=== PATIENT | male | born 1950 | race Caucasian/White ===

== ENCOUNTER → 2023-09-11 10:56 | Outpatient (REF) | payer OTHER, SELFPAY | LOC: HWRAD 10:56 | PROVIDERS: ATTENDING PHYSICIAN Family Medicine | DX: M51.26 Other intervertebral disc displacement, lumbar region (principal) | CPT/HCPCS: 72110 ==

== ENCOUNTER → 2023-09-27 11:37 | Outpatient (REF) | payer OTHER, SELFPAY | LOC: HWRAD 11:37 | PROVIDERS: ATTENDING PHYSICIAN Surgery; FAMILY PHYSICIAN Family Medicine | DX: K43.2 Incisional hernia without obstruction or gangrene (principal) | CPT/HCPCS: 74177; Q9967 ==

== ENCOUNTER → 2023-10-05 13:08 | Outpatient (REF) | payer OTHER, SELFPAY | LOC: PAVMRI 13:08 | PROVIDERS: ATTENDING PHYSICIAN Family Medicine | DX: M51.26 Other intervertebral disc displacement, lumbar region (principal) | CPT/HCPCS: 72158; A9575 ==

== ENCOUNTER → 2023-10-10 16:34 | Outpatient (REF) | payer OTHER, SELFPAY | LOC: HWRAD 16:34 | PROVIDERS: ATTENDING PHYSICIAN Family Medicine | DX: M25.532 Pain in left wrist (principal); S62.102A Fracture of unspecified carpal bone, left wrist, initial encounter for closed fracture | CPT/HCPCS: 73110 ==

== ENCOUNTER 2023-11-19 06:56 | Inpatient (IN) | payer OTHER, SELFPAY ==
[2023-11-07 13:36] VITALS: BMI 34.2
[2023-11-19] VITALS (31 sets, daily range): BP systolic 10–142; BP diastolic 63–92; BMI 31.5
[2023-11-19] MEDS: TYLENOL 1000 MG PO (08:45)
[2023-11-19] MEDS: LOVENOX 40 MG SC (08:45)
[2023-11-19] MEDS: NORMOSOL-R 1000 IV (09:16)
--- NOTE | 2023-11-19 13:59 | W.IMMPOSTOP ---
Surgical Immed Post Op Note
-
Primary Surgeon: Valerio
Assisting: DICKSON Church Toubat PGY1:
Pre-op Diagnosis: Ventral incisional hernia
Post-op Diagnosis: Incarcerated ventral incisional hernia
Procedure Performed: Repair of incarcerated ventral incisional hernia (16cm diameter) with separate releases of transversus abdominis fascia and muscle bilaterally (CPT 98361 x2)
Anesthesia Type: GETA + TAP block
Specimen / Cultures: None
Estimated Blood Loss: 25cc
Complications: None immediate
Operative Findings: 16cm x 9cm defect; minimal lysis of adhesions required, virtually no subcutaneous dissection required; tension free closure of posterior sheath after bilateral transversalis release; 2 small holes in the peritoneum at the
lateral pole of the arcuate line (one on each side) repaired with 3-0 vicryl suture; 30cm x 30cm bard soft mesh; 19fr spike drains into retrorectus space (one on each side).
--- NOTE | 2023-11-19 14:06 | OR.RPT ---
Operative Report
Operative Report
Primary Surgeon: Valerio
Assisting: DICKSON Church; Jeronimo PGY1
Pre-op Diagnosis: Ventral incisional hernia
Post-op Diagnosis: Incarcerated ventral incisional hernia
Procedure Performed: Repair of incarcerated ventral incisional hernia (16cmx 9cm) with left side release of transversus abdominis fascia and muscle & right side release of transversus abdominis fascia and muscle (CPT 38161 x2)
Anesthesia Type: GETA
Specimen / Cultures: None
Estimated Blood Loss: 25cc
Complications: None immediate
Operative Findings: 16cm x 9cm defect; minimal lysis of adhesions required, virtually no subcutaneous dissection required; tension free closure of posterior sheath after bilateral transversus release; 30cm x 30cm bard soft mesh; 19fr spike drains
into retrorectus space (one on each side).
Date of Surgery: 11/19/23
Indications: This 73M developed a symptomatic and rapidly enlarging ventral incisional hernia. Open repair with component separation was elected.
Description of procedure: The patient was placed on the operating table in the supine position. General anesthesia was induced. A time-out was completed verifying correct patient, procedure, site, positioning, and special equipment prior to
beginning this procedure.The abdomen was prepped and draped in the usual sterile fashion. An incision was made in the midline at the site of his scar and the incision was carried down to the hernia sac. The sac was divided taking care to preserve as
much sac tissue as possible. The incision was carried cephalad and caudad using electrocautery and dividing the hernia sacs and linea alba. The abdomen was entered and 3 areas of thin filmy adhesions from small bowel to abdominal wall were lysed
sharply. A blue towel was placed into the abdomen to protect the viscera. The midline fascia was gasped and elevated and the left rectus sheath was incised at the medial aspect with electrocautery. This incision was carried cephalad and caudad until
the entire length of the sheath was opened. At the arcuate line a small hole in the peritoneum was noted and repaired with 3-0 vicryl suture. The retrorectus space was bluntly developed laterally out to the perforators which were protected.
Attention was turned to the right side and the process was repeated with a similar hole in the peritoneum at the same location, repaired in similar fashion. Once the space was maximally developed, the cut edges were gently brought together at the
midline and a significant gap remained. Beginning on the right, an incision was made in the posterior sheath about 1cm medial to the perforators and the transversus muscle belly was exposed. A right angle was used to elevate the muscle fibers and
the bovie was used to release them. The transversus fibers were then gently bluntly swept laterally off the peritoneum. This maneuver progressed in both cephalad and caudad directions until the release was completed. Attention was turned to the left
side and the above process was repeated. The blue towel was removed. The cut edges of the posterior sheath now reapproximated without tension. This layer was closed with 2-0 PDS stratafix suture. The entire exposed surface was inspected and
hemostasis was assured. A 30cm x 30cm bard soft mesh was placed into the retrorectus space in adri configuration. The corners were trimmed to prevent folding. Once the mesh was laid flat without folding or curling, it was fixed to the abdominal
wall with 3-0 vicryl sutures at each corner. A 19fr spike drain was placed on each side on top of the mesh, brought out through an inferior skin incision and secured with 2-0 nylon suture. The anterior fascia was then closed with #1 PDS stratafix
suture without tension. Local anesthetic was infiltrated into the abdominal wall along both sides. Redundant sac wall was excised with electrocautery. The skin was closed with geovanny. An aquacel dressing was placed.
The patient tolerated the procedure well and was taken to the postanesthesia care unit in stable condition.
[2023-11-19 14:07] LABS: Glucose - Point of Care 151 mg/dl (70-99)
[2023-11-19 14:48] LABS: Hematocrit 35.3 % (39.0-52.0); Hemoglobin 12.5 g/dL (13.0-18.0); Mean Corp Hgb Conc. 35.4 g/dL (33.0-37.0); Mean Corpuscular Hgb 35.4 pg (27.0-31.0); Mean Platelet Volume 9.2 fL (7.4-10.4); Platelet Count 200 10^3/uL (130-400); Red Blood Cell Count 3.53 10^6/uL (4.70-6.10); Red Cell Dist. Width 13.5 % (11.5-14.5); White Blood Cell Count 13.4 10^3/uL (4.8-10.8)
[2023-11-19] MEDS: DILAUDID PCA 30 IV (14:51)
[2023-11-19] MEDS: D5/0.45%NSS with KCL 20 MEQ 1000 IV (14:51)
[2023-11-19 15:02] LABS: Blood Urea Nitrogen 22 mg/dl (9-20); Calcium 7.6 mg/dl (8.4-10.2); Carbon Dioxide 19 mmol/L (22-30); Chloride 106 mmol/L (98-107); Estimated Creatinine Clearance 47 ml/min; Glucose 167 mg/dl (70-99); Sodium 134 mmol/L (135-145); eGFR 52.41
--- NOTE | 2023-11-19 16:23 | W.CON.NEPH ---
Consultation
-
Date/Time Consultation Requested: 11/19/2023 4:00 PM
Date/Time Consultation Performed: 11/19/2023 4:00 pm
Requesting Provider: Valerio
Performing Provider: Arturo
Reason for Consultation: CKD
Medical History
-
Chief Complaint: Chronic kidney disease /decreased urine output
History of Present Illness:
The patient is a 73-year-old male with a past medical history of chronic kidney disease stage II last noted to be stable at 1.1 in July 2023. He has a history of hypertension maintained on lisinopril therapy. He is maintained on allopurinol in
the setting of his gout and tamsulosin for his BPH. He presented to the hospital for elective ventral hernia repair for incarcerated ventral hernia. During the procedure his blood pressure abruptly dropped with systolics noted to be as low as 62
and was started on pressors intraoperatively for blood pressure support. After arriving to the PACU he has had little urine output which was noted during the surgical case despite exchange of Quick catheter. We were consulted in regards to his
decreased urine output in the setting of his chronic kidney disease.
Past Medical History
Hypertension
Gout
BPH
Prior history of sigmoid diverticulitis
History of solitary left kidney following right nephrectomy in 2007 for renal mass
CKD stage II baseline creatinine 1.1
Social History
No tobacco or alcohol abuse
Family History
No CKD
Family History: Not Pertinent
Allergies / Home Medications
Allergy/AdvReac Type Severity Reaction Status Date / Time
NSAIDS (Non-Steroidal Allergy SEE BELOW Verified 11/19/23 08:41
Anti-Inflamma
ragweed pollen Allergy SNEEZING,RUNNY Verified 11/19/23 08:41
NOSE
/WATERY
EYES
�Medication �Instructions �Recorded �Confirmed �Type
glucosamine sulfate dipotassium Cl 1 cap PO BID Supplement 07/23/12 11/19/23 History
500 mg-chondroitin 400 mg capsule
(Glucosamine Sulfate 2
KCL-Chondroitin)
omega-3 fatty acids-fish oil 300 1,000 mg PO BID Supplement 07/23/12 11/19/23 History
mg-1,000 mg capsule
allopurinol 300 mg tablet 300 mg PO DAILY Gout 11/17/21 11/19/23 History
cyanocobalamin (vitamin B-12) 5,000 mcg PO DAILY Supplement 11/17/21 11/19/23 History
1,000 mcg tablet
lisinopril 20 mg tablet 20 mg PO DAILY Blood pressure 11/17/21 11/19/23 History
loratadine 10 mg tablet 10 mg PO DAILY Allergies 11/17/21 11/19/23 History
tamsulosin 0.4 mg capsule 0.4 mg PO DAILY Urinary issue 06/13/22 11/19/23 History
acetaminophen 650 mg 1,300 mg PO Q12H Pain 04/24/23 11/19/23 History
tablet,extended release
ijvtohvqdrfk-pfmxruln-jyqjxu tablet 1 tab PO DAILY Supplement 04/24/23 11/19/23 History
tadalafil 5 mg tablet 5 mg PO DAILY 11/13/23 11/19/23 History
Review of Systems
-
History Source: Patient
All other systems: Negative unless noted
Constitutional: No Symptoms
EENT: No Symptoms
Respiratory: No Symptoms
Cardiac: No Symptoms
Abdomen/GI: Other (Some mild postoperative abdominal pain)
: Bleeding and Other (Quick with blood-tinged urine)
Musculoskeletal: No Symptoms
Skin: No Symptoms
Neurological: No Symptoms
Hematologic/Lymphatic: No Symptoms
Physical Exam
Vital Signs
Vital Signs
Temp Pulse Resp BP Pulse Ox
97 F 80 20 114/75 94
11/19/23 15:00 11/19/23 16:15 11/19/23 16:15 11/19/23 16:00 11/19/23 16:15
Lab Results
WBC 13.4 10^3/uL (4.8-10.8) H 11/19/23 14:41
RBC 3.53 10^6/uL (4.70-6.10) L 11/19/23 14:41
Hgb 12.5 g/dL (13.0-18.0) L 11/19/23 14:41
Hct 35.3 % (39.0-52.0) L 11/19/23 14:41
Plt Count 200 10^3/uL (130-400) 11/19/23 14:41
Sodium 134 mmol/L (135-145) L 11/19/23 14:41
Potassium 4.0 mmol/L (3.5-5.1) 11/19/23 14:41
Chloride 106 mmol/L (98-107) 11/19/23 14:41
Carbon Dioxide 19 mmol/L (22-30) L 11/19/23 14:41
BUN 22 mg/dl (9-20) H 11/19/23 14:41
Creatinine 1.4 mg/dL (0.7-1.3) H 11/19/23 14:41
eGFR 52.41 11/19/23 14:41
Glucose 167 mg/dl (70-99) H 11/19/23 14:41
Calcium 7.6 mg/dl (8.4-10.2) L 11/19/23 14:41
Physical Exam
General: Awake, Alert, No Distress and Nontoxic
HEENT: PERRL, EOMI, Anicteric, Conjunctivae Clear, Ear/Nose Intact, Hearing Normal, Oropharynx Clear/Moist, Dentition Intact, Facial Symmetry, Neck Supple, Trachea Midline, No JVD and No Thyromegaly
Respiratory: Clear
Cardiac: S1/S2 and Regular Rate/Rhythm
Breast: Deferred by me
Abdomen: Nondistended (Distended, SHERRY drain), No Hepatosplenomegaly and Other (Decreased bowel sounds)
Rectal: Deferred by Provider
Genito-urinary: No Costovertebral Tender and Other (Quick catheter noted with blood in urine)
Musculoskeletal: No Clubbing, No Cyanosis and No Edema
Skin: No Rash, Warm, Dry, No Clubbing, No Cyanosis, Normal Turgor and No Bruising
Neuro: Nonfocal/Grossly Intact
Hematologic/Lymphatic: No Cervical Lymphadenopathy, No Submandibular Lymphadenopathy and No Supraclavicular Lymphadenopathy
Psych: Mood/afflect pleasant and Other (Some postoperative lethargy noted)
Assessment/Plan
-
Impression:
Status post ventral hernia repair
Chronic kidney disease stage II with decreased urine output postoperatively
BPH
Hypertension
History of gout
History of diverticulitis
Metabolic acidosis
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
Plan:
-I suspect his poor urine output is a function of decreased mean arterial perfusion pressure as per review of the anesthesia log
-Systolic blood pressures were noted to have dropped to 62 with multiple pressors initiated
-Colloid and albumin support was aggressively given intraoperatively
-Postoperatively more hemodynamically stable and will continue on normal saline 100 cc per/hr
-Maintain Quick catheter and do not remove given history of BPH and acute kidney injury with current anuria (catheter currently irrigating well with flushes)
-Withhold lisinopril
-If no urine output by tomorrow morning we will obtain non contrast CAT scan of abdomen and pelvis to evaluate for obstructive process
Data Reviewed
-
Radiology: Report Reviewed by me (EKG report reviewed personally sinus rhythm at 65 beats per)
Labs: Labs Reviewed by me (Basic metabolic panel and CBC reviewed)
Old Records: Reviewed (Reviewed old medical records from date April 2023 creatinine 1.1 in electronic medical record)
--- NOTE | 2023-11-19 16:32 | CON.HOSP ---
Addendum entered and electronically signed by Moustapha Ramsey MD 11/19/23 18:36:
I saw and examined the patient.
The TELESALES CONSULTANT or PA's note was reviewed and I agree with the note.
Comment: History as noted and have to suspest has some ATN from hypotension intraoperative in spite pressers and 4 litres of crystalloids and albumin being given BP has since recovered when seen in PACU but remains drowsy but arousable and
appropriate but w/ meager if any urine output thru tai .No signs of obstruction from clots etc Given this presentation would prefer to observe and manage at least overnight in IMU , continue IV fluids , hold TRIPP inhibitor and tamsulosin can cont
as long as BP remains stable.Can be given further pressors in IMU if warranted /if remains oliguric will need imaging to assess for obstructive process.
Appreciate Nephrology and Urologic input, monitor BMP and cont to Bladder scan / Monitor SHERRY drains post op surgical mgt
Original Note:
Family Physician
-
Family Physician: Gerardo Cisneros
Chief Complaint
-
medical management
History of Present Illness
73-year-old with past medical history for prostate cancer, gout, acute diverticulitis, arthritis, hypertension, solitary kidney, BPH consulted for medical management status post open ventral hernia repair. Patient received 4 L of crystalloid and
250 cc albumin in the OR. Patient noted oliguric. Tai catheter placed in the OR with very minimal output. Bladder irrigated in the ER as well as PACU with no much urine output. Patient is very drowsy. Opens eyes when called name. Patient
feels like, he wants to void. Patient denied headache dizziness or syncopal episode. Patient denied chest pain or short of breath. Noted abdominal distended. Dressing intact. Noted bilateral SHERRY drainage.
Medical History
Past Medical History
Past Medical History: Reports Other
Additional Past Medical History:
Renal oncocytoma of right kidney
Solitary left kidney
Gout
Hypertension
Prostate cancer
Nephrolithiasis
Chronic kidney disease stage II
Prostate cancer
Sciatica
History of kidney cancer
Constipation
Colonic fistula
Diverticulitis of colon
Colovesical fistula
Past Surgical History: Reports Other
Additional Past Surgical History:
Lithotripsy
Cardioversion
Radical right nephrectomy
Bilateral cataract surgery
Bilateral knee replacement
Left rotator cuff repair
L4-L5 laminectomy
Bilateral duct stenting
Bilateral total hip replacement
Sigmoidectomy
Social History
Unable to obtain full social history at this time due to: Acuity
Family History
Family History: Reviewed & Not Pertinent
Allergies / Home Medications
Allergies reflects when Allergies were last updated in [employer]
Home Medications with original date entered in [employer]
Allergy/Medication List:
Allergies
Allergy/AdvReac Type Severity Reaction Status Date / Time
NSAIDS (Non-Steroidal Allergy SEE BELOW Verified 11/19/23 08:41
Anti-Inflamma
ragweed pollen Allergy SNEEZING,RUNNY Verified 11/19/23 08:41
NOSE
/WATERY
EYES
Home Medications
glucosamine sulfate dipotassium Cl 500 mg-chondroitin 400 mg capsule (Glucosamine Sulfate 2 KCL-Chondroitin) 1 cap PO BID Supplement 07/23/12
omega-3 fatty acids-fish oil 300 mg-1,000 mg capsule 1,000 mg PO BID Supplement 07/23/12
allopurinol 300 mg tablet 300 mg PO DAILY Gout 11/17/21
cyanocobalamin (vitamin B-12) 1,000 mcg tablet 5,000 mcg PO DAILY Supplement 11/17/21
lisinopril 20 mg tablet 20 mg PO DAILY Blood pressure 11/17/21
loratadine 10 mg tablet 10 mg PO DAILY Allergies 11/17/21
tamsulosin 0.4 mg capsule 0.4 mg PO DAILY Urinary issue 06/13/22
acetaminophen 650 mg tablet,extended release 1,300 mg PO Q12H Pain 04/24/23
mqgcgdjaysnw-bfhhypnw-trwwwc tablet 1 tab PO DAILY Supplement 04/24/23
tadalafil 5 mg tablet 5 mg PO DAILY 11/13/23
Review of Systems
-
Constitutional: Reports No Symptoms
EENT: Reports No Symptoms
Respiratory: Reports No Symptoms
Cardiac: Reports No Symptoms
Abdomen/GI: Reports No Symptoms
: Reports No Symptoms
Musculoskeletal: Reports No Symptoms
Skin: Reports No Symptoms
Neurological: Reports No Symptoms
Endocrine: Reports No Symptoms
Hematologic/Lymphatic: Reports No Symptoms
Psych: Reports No Symptoms
Physical Exam
Vital Signs
Vital Signs
Temp Pulse Resp BP Pulse Ox
97 F 80 20 114/75 94
11/19/23 15:00 11/19/23 16:15 11/19/23 16:15 11/19/23 16:00 11/19/23 16:15
Physical Exam
General: Well Developed, Well Nourished and No Apparent Distress
HEENT: Normocephalic, Moist Mucous Membranes and Atraumatic
Respiratory: Clear
Cardiac: S1/S2 and Regular Rhythm; Negative Murmur or Rub
GI: Soft, Non Tender, Non Distended, Normal Bowel Sounds and Other (b/l SHERRY drainage. dressing c/d/i)
Rectal: Deferred by Provider
Musculoskeletal: No Clubbing, No Cyanosis and No Edema
Skin: Negative Rash
Neuro: AO x 3 and Nonfocal/Grossly Intact
Psych: Calm
Laboratory Results
-
Laboratory Results
11/19/23 14:41
11/19/23 14:41
Data Reviewed
-
Lab Data: Labs Reviewed
Impression / Plan
-
# Status post ventral incisional hernia repair
-Bilateral SHERRY drainage
-Abdominal dressing intact
-Clear liquid diet
-Management surgery
# Oliguric unclear
-Tai cath in place with little output
-Urology consulted
# Acute kidney injury
-Creatinine 1.4
-Fluids continued
-Nephrology consulted
# Essential hypertension
-Hold lisinopril
# Prostatic hypertrophy
-Flomax continued
#. Gout. Hold allopurinol.
#Deep venous thrombosis prophylaxis with SCDs.
# CODE STATUS
-Full code
[2023-11-19] MEDS: OFIRMEV 100 IV ×2 (16:35→22:26)
[2023-11-19] MEDS: NSS 1000 IV (16:51)
--- NOTE | 2023-11-19 18:02 | SUR.PHASEI ---
pacu addendum - patient post op pacu extensive hernia repair, report scant urine output and tai change in OR. still scant - looks clear water with slight blood tinge. Abdomen very large, patient somulent - SHERRY drainage as noted. Dr Luo
updated throughout pacu stay. labs drawn results to Dr Cassidy and Dr Luo. Fluid bolus given with no increase in output. vss. monitor with occasional pac's and pvc's. Patient sleeps unless disturbed, - c/o discomfort of need to void. Does
not c/o with abd pressure over bladder area. - attempt bladder scan at 1500 - 20cc. Difficult technique with incision line and dressing. soft tissue bulge right side of abd, minimal drainage on dressing - marked. vss. weaned O2 to nasal
cannula. 1430 - IV bolus completed - per Dr Luo - D5.45ns with 20KCl up and Dilaudid HORSE RACING ANALYST up. Instructed patient who sleeps through instruction. Denies pain
SHERRY drains intact and continue to drain Left more than right. Dr Retana visits. Keasbey MACHINE ROOM ENGINEER visit. 1700 - change to NS IV. updated x2 and visited in pacu at 1700. Dr Luo confering with Dr Reyes and Dr Retana - Tai balloon deflated and
blood spurts from penis. Patient 'voiding' in spurts - 200 cc of bloody drainage out - at 1740 - total of 500cc out with huge formed clot. bladder scan again - for another 500cc. patient sleeps
--- NOTE | 2023-11-19 18:56 | W.PN.URO.CBU ---
Today's Communication / Plan
-
Keep Quick at least 48 hours
Voiding trial before discharge home or as outpatient
Assessment / Plan
-
Quick catheter trauma
Gross hematuria
Urine retention
---
Sterile field established at the bedside
20 Fr Coude catheter passed with some resistance in the mid/proximal urethra after the intra-urehtral administration of 10 cc lubricant jelly (which also met some resistance)
500+ ml of clear urine recovered immediately
Quick balloon inflated with 10 ml sterile water
Diagnosis
-
Date of Service: November 19, 2023
-
Patient Diagnosis:
Gross hematuria
Urine retention
Quick catheter trauma: during open incisional hernia repair
---
History of prostate cancer s/p radical perineal prostatectomy 04/28
Subjective
-
Relief of lower abdominal discomfort following successful placement of Quick catheter
Objective
-
Vital Signs
Temp Pulse Resp BP Pulse Ox
98.2 F 85 23 137/86 96
11/19/23 15:45 11/19/23 18:30 11/19/23 18:30 11/19/23 18:30 11/19/23 18:30
Intake and Output
11/18/23 11/19/23 11/20/23
06:59 06:59 06:59
Intake Total 870 / 870
Output Total 1435 / 1435
Balance -565 / -565
Intake:
Oral fluids 20 / 20
IV fluids (Total) 850 / 850
D5.45ns with 20 KCL 150 / 150
normosol 400 / 400
nss 300 / 300
Output:
Drain Output (Total) 235 / 235
Left Middle Abdomen 165 / 165
Right Middle Abdomen 70 / 70
Urine, Quick 25 / 25
Urine, Voided 1175 / 1175
Laboratory Results
11/19/23 14:41
11/19/23 14:41
Review of Systems
-
: Difficulty Voiding and Bleeding
Physical Exam
-
General - well developed, well nourished, no acute distress
Abdomen - soft, non-tender, abdominal dressing in place, SP discomfort
Genitalia - clotted blood at urethral meatus
Counseling
-
Discussed with Dr. Luo
--- NOTE | 2023-11-19 20:10 | SUR.PHASEI ---
Dr Reyes in pacu at 1830 - examines and spoke with patient. Coude #20 cath inserted without difficulty. clear ernst urine - no bleeding.
stat lock placed, vss, Dr Morris updated by TT. Dr Reyes to call Dr Luo. Skin care given UTILITY ENGINEER reviewed again with patient who is having some discomfort. patient understands and able to use. skin care given. lungs clear. tai now draining
clear ernst urine. 1929 - discharge to IMU - handoff at bedside. updated by phone
--- NOTE | 2023-11-19 20:50 | PTCARENOTE ---
Received pt from FINANCIAL SECRETARY. Pt pulled over to our bed. Pt is AAOx3, drowsy. NSR on the monitor. On 2L NC O2 sat 95%, lungs clear. Quick in place, hygiene provided. Abd incision with post op dressing intact. B/l SHERRY drains in place. Pt c/o 01/13 abd
pain, pt came up on a TABLE TENDER SLUDGE pump, education provided. IVF infusing @ 100 ml/hr. CHG bath provided. Pt is laying comfortable in bed with call hurtado in reach.
[2023-11-20] VITALS (25 sets, daily range): BP systolic 93–136; BP diastolic 51–82; PULSE 83; O2SAT 93; BMI 33.6
[2023-11-20] MEDS: NSS 1000 IV ×3 (01:28→20:31)
[2023-11-20] MEDS: OFIRMEV 100 IV ×2 (03:52→10:55)
[2023-11-20 04:29] LABS: Hematocrit 33.7 % (39.0-52.0); Hemoglobin 11.6 g/dL (13.0-18.0); Mean Corp Hgb Conc. 34.4 g/dL (33.0-37.0); Mean Corpuscular Hgb 35.2 pg (27.0-31.0); Mean Corpuscular Volume 102.1 fL (80.0-94.0); Mean Platelet Volume 9.7 fL (7.4-10.4); Platelet Count 209 10^3/uL (130-400); Red Cell Dist. Width 13.3 % (11.5-14.5); White Blood Cell Count 13.1 10^3/uL (4.8-10.8)
[2023-11-20 04:55] LABS: Blood Urea Nitrogen 24 mg/dl (9-20); Carbon Dioxide 21 mmol/L (22-30); Chloride 104 mmol/L (98-107); Estimated Creatinine Clearance 57 ml/min; Glucose 150 mg/dl (70-99); Potassium 4.5 mmol/L (3.5-5.1); Sodium 136 mmol/L (135-145); eGFR > 60.00
--- NOTE | 2023-11-20 07:13 | W.PN.HOSP.TC ---
Today's Communication/Plan
-
Continue IV fluids for now
Hematuria and oliguria now resolved continue Quick catheter as per urology for another 24 hours and void trial
Would continue to hold on TRIPP inhibitor as BPs remain soft
Increase activity diet advancement as per general surgery
Continue to monitor BMP
Assessment / Plan
Assessment / Plan
3-year-old with past medical history for prostate cancer, gout, acute diverticulitis, arthritis, hypertension, solitary kidney, BPH consulted for medical management status post open ventral hernia repair. Patient received 4 L of crystalloid and 250
cc albumin in the OR. Patient noted oliguric. Quick catheter placed in the OR with very minimal output. Bladder irrigated in the ER as well as PACU with no much urine output. Patient is very drowsy. Opens eyes when called name. Patient feels
like, he wants to void. Patient denied headache dizziness or syncopal episode. Patient denied chest pain or short of breath. Noted abdominal distended. Dressing intact. Noted bilateral SHERRY drainage.
# Status post ventral incisional hernia repair
-Bilateral SHERRY drainage
-Abdominal dressing intact
-Clear liquid diet
-Management surgery
# Oliguric /developed intraoperatively and postoperatively/ resolving
-Quick cath in place with little output in PACU/found to be in urethra and urology inserted a coud� catheter with good return
-Initial course of hematuria seems to be now resolving/retained catheter for another 24 hours and void trial recommended
-Appreciate urology input
-
# Acute kidney injury/obstructive versus ATN from hypotension
-Creatinine 1.4>> 1.2
-Fluids continued
-Nephrology consulted
# Essential hypertension
-Hold lisinopril would continue to hold TRIPP inhibitor today
# Prostatic hypertrophy
-Flomax continued
-Void trial in next 24 hours
#. Gout. Hold allopurinol.
#Deep venous thrombosis prophylaxis with SCDs.
# CODE STATUS
-Full code
Anticipated Discharge: Within 24 hours
Subjective/Interval History
-
Date of Service: November 20, 2023
States he feels significantly better much more awake alert from that seen in PACU had a restful night had coud� catheter inserted by urology with initial hematuria now seems to be resolving with good urine output overnight. Is hungry and wants to
start on liquid diet as per surgery.
Objective Data
-
Labs:
Laboratory Results
11/20/23
04:16
WBC 13.1 H
Hgb 11.6 L
Hct 33.7 L
Plt Count 209
Sodium 136
Potassium 4.5
Chloride 104
Carbon Dioxide 21 L
BUN 24 H
Creatinine 1.2
Glucose 150 H
Calcium 8.0 L
Vital Signs:
Vital Signs
Temp Pulse Resp BP Pulse Ox
97.8 F 72 16 101/57 93
11/20/23 03:12 11/20/23 06:00 11/20/23 06:30 11/20/23 06:00 11/20/23 06:33
I&O
11/19/23 11/20/23 11/21/23
06:59 06:59 06:59
Intake Total 2493 / 2493
Output Total 2215 / 2215
Balance 278 / 278
Review of Systems
-
History Source: Patient
EENT: Reports No Symptoms Reported
Respiratory: Reports No Symptoms
Cardiac: Reports No Symptoms
Abdomen/GI: Reports Abdominal Pain (Or incisions)
Physical Exam
-
General: Well Developed
HEENT: Normocephalic
Respiratory: Clear to Auscultation
Cardiac: Regular Rhythm
GI: Soft, Tender and Other (SHERRY drains bilaterally)
Genito-urinary: Quick
Neuro: Awake, Alert, Oriented and AO x 3
Psych: Calm
Data Reviewed
-
Total Time Spent with Patient (in minutes): 56
Labs: Labs Reviewed by me (Creatinine trending down to 1.2 from 1.4 yesterday/white count 13.1/hemoglobin 11.6)
[2023-11-20] MEDS: CLARITIN 10 MG PO (07:52)
[2023-11-20] MEDS: FLOMAX 0.400000000000000022 MG PO (07:52)
[2023-11-20] MEDS: MIRALAX 17 GRAMS PO (07:52)
[2023-11-20] MEDS: ZYLOPRIM 300 MG PO (07:52)
[2023-11-20] MEDS: LOVENOX SC (07:53)
--- NOTE | 2023-11-20 09:33 | PTCARENOTE ---
Patient received from night monitor. Patient resting comfortably in bed. AAO, VSS. No events noted overnight. No complaints of pain as patient on a Dilaudid NIGHT MONITOR. IVF @ 100mL/hr. Surgical site intact. B/L SHERRY drains with serosanguineous output.
Quick in place, yellow urine. Call hurtado in reach.
--- NOTE | 2023-11-20 09:59 | PTOTSP ---
Please order occupational therapy for ADL dysfunction. Thanks
--- NOTE | 2023-11-20 10:50 | W.PN.GS2 ---
Addendum entered and electronically signed by Eligio Luo MD 11/20/23 15:50:
I saw and examined the patient.
The Clinical Statistics Manager's note was reviewed and I agree with the note.
Comment: Pain well controlled. No flatus yet, no nausea. Drains serosang, aquacel OK with strikethrough at the inferior aspect, tai with clear yellow urine. OK for fulls today. PT/PT seeing. lovenox ppx and SCDs for DVT ppx. Cont tai for now.
Original Note:
Today's Communication / Plan
-
Clear liquids
Follow labs/outputs
Assessment / Plan
-
73 yo male who is POD #1 repair of incarcerated ventral hernia
AFVSS
Labs stable, CR improved today
Chronic kidney disease stage II with decreased urine output postoperatively: ATN suspected with urinary retention component. Improving with tai placement and IVF boluses
Medicine, urology and nephrology following with us
Await bowel recovery
--Clear liquids until passing flatus, then will ADAT to LRD
--Continue SHERRY's
--OOB/Ambulate as able
--Multimodal analgesics
--Continue tai for at least 48 hours as per urology recs
Subjective Data
-
Date of Service: November 20, 2023
Patient seen and examined at bedside. Denies n/v. Tolerating clears. No passage of flatus as of yet. No BM. Tired overall but OOB this am. Minimal post op discomfort.
Objective Data
-
Intake and Output
11/19/23 11/20/23 11/21/23
06:59 06:59 06:59
Intake Total 2493 / 2493
Output Total 2215 / 2215
Balance 278 / 278
Intake:
Oral fluids 140 / 140
IV fluids (Total) 215 / 215
D5.45ns with 20 KCL 150 / 150
UNLOAD ASSOCIATE Dilaudid 3 / 3
normosol 400 / 400
nss 400 / 400
ofirmev 100 / 100
IV piggybacks 200 / 200
Output:
Drain Output (Total) 315 / 315
Left Middle Abdomen 210 / 210
Right Middle Abdomen 105 / 105
Urine, Tai 725 / 725
Urine, Voided 1175 / 1175
Vital Signs
Temp Pulse Resp BP Pulse Ox
98.6 F 72 17 101/57 92
11/20/23 07:18 11/20/23 06:00 11/20/23 07:33 11/20/23 06:00 11/20/23 07:33
Lab Results
11/20/23 04:16
11/20/23 04:16
Calcium 8.0 mg/dl (8.4-10.2) L 11/20/23 04:16
Physical Exam
-
NAD
ABD soft, minimal distention, NT.
Aquacel dressings intact with shadowing. BL SHERRY's with mostly sanguinous fluid
--- NOTE | 2023-11-20 11:17 | W.PN.NEPH.PH ---
Today's Communication / Plan
-
sign off
Assessment/Plan
-
Impression:
Status post ventral hernia repair
Chronic kidney disease stage II with decreased urine output postoperatively
BPH
Hypertension
History of gout
History of diverticulitis
Metabolic acidosis
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
Plan:
-Kidney function stable and grossly nonoliguric following Quick catheter insertion
-Remains hemodynamically labile would continue to withhold TRIPP inhibitor at this time , can be restarted at discharge once bp rebounds
-Colloid and albumin support was aggressively given intraoperatively
-Postoperatively more hemodynamically stable and will continue on normal saline 100 cc per/hr
-Quick management per urology
-We will sign off
-
-
Date of Service: November 20, 2023
CC / HPI / ROS
-
Chief Complaint:
CKD
History of Present Illness:
Creatinine stable at 1.2
Hemodynamically labile off TRIPP inhibitor
Status post incarcerated ventral hernia repair
Review of Systems:
Quick
No fevers
Labs
-
Labs:
WBC 13.1 10^3/uL (4.8-10.8) H 11/20/23 04:16
RBC 3.30 10^6/uL (4.70-6.10) L 11/20/23 04:16
Hgb 11.6 g/dL (13.0-18.0) L 11/20/23 04:16
Hct 33.7 % (39.0-52.0) L 11/20/23 04:16
Plt Count 209 10^3/uL (130-400) 11/20/23 04:16
Sodium 136 mmol/L (135-145) 11/20/23 04:16
Potassium 4.5 mmol/L (3.5-5.1) 11/20/23 04:16
Chloride 104 mmol/L (98-107) 11/20/23 04:16
Carbon Dioxide 21 mmol/L (22-30) L 11/20/23 04:16
BUN 24 mg/dl (9-20) H 11/20/23 04:16
Creatinine 1.2 mg/dL (0.7-1.3) 11/20/23 04:16
eGFR > 60.00 11/20/23 04:16
Glucose 150 mg/dl (70-99) H 11/20/23 04:16
Calcium 8.0 mg/dl (8.4-10.2) L 11/20/23 04:16
Physical Exam
-
Vital Signs:
Vital Signs
Temp Pulse Resp BP Pulse Ox
98.6 F 72 17 101/57 92
11/20/23 07:18 11/20/23 06:00 11/20/23 07:33 11/20/23 06:00 11/20/23 07:33
Cardiovascular:: Regular rate and rhythm
Respiratory:: Bilateral: CTA
Lung Excursion:: Normal
Abdomen:: Distended
Bowel Sounds:: Decreased
Extremity Edema:: None: Bilateral:
Quick Catheter: Yes
--- NOTE | 2023-11-20 12:09 | W.PN.URO.CBU ---
Today's Communication / Plan
-
Keep Quick
Consider voiding trial prior to discharge if here another 48 hours
Assessment / Plan
-
Quick catheter trauma
Gross hematuria
Urine retention
---
Procedure 11/19/23:
Sterile field established at the bedside
20 Fr Coude catheter passed with some resistance in the mid/proximal urethra after the intra-urehtral administration of 10 cc lubricant jelly (which also met some resistance)
500+ ml of clear urine recovered immediately
Quick balloon inflated with 10 ml sterile water
Diagnosis
-
Date of Service: November 20, 2023
-
Patient Diagnosis:
Post Op Day:
Patient Diagnosis:
Gross hematuria
Urine retention
Quick catheter trauma: during open incisional hernia repair
---
History of prostate cancer s/p radical perineal prostatectomy 04/28
Subjective
-
No catheter bother
c/o incisional tenderness
Objective
-
Vital Signs
Temp Pulse Resp BP Pulse Ox
98.0 F 72 17 101/57 92
11/20/23 11:19 11/20/23 06:00 11/20/23 07:33 11/20/23 06:00 11/20/23 07:33
Intake and Output
11/19/23 11/20/23 11/21/23
06:59 06:59 06:59
Intake Total 2493 / 2493 240 / 240
Output Total 2215 / 2215
Balance 278 / 278 240 / 240
Intake:
Oral fluids 140 / 140 240 / 240
IV fluids (Total) 2152 / 215
D5.45ns with 20 KCL 150 / 150
DIRECTOR COMMERCIAL SALES Dilaudid 3 / 3
normosol 400 / 400
nss 400 / 400
ofirmev 100 / 100
IV piggybacks 200 / 200
Output:
Drain Output (Total) 315 / 315
Left Middle Abdomen 210 / 210
Right Middle Abdomen 105 / 105
Urine, Quick 725 / 725
Urine, Voided 1175 / 1175
Laboratory Results
11/20/23 04:16
11/20/23 04:16
Review of Systems
-
Constitutional: Fatigue
Respiratory: No Symptoms
Cardiac: No Symptoms
Abdomen/GI: Abdominal Pain
Neurological: No Symptoms
Physical Exam
-
General - well developed, well nourished, no acute distress
Abdomen - soft, dressing intact
Genitalia - normal with Quick draining clear urine
Skin - warm & dry with no rash
Neuro - AOx3, no motor deficits
--- NOTE | 2023-11-20 14:19 | CM ---
Patient who is s/p repair of incarcerated ventral hernia, with Dx oliguria, hematuria, ROSSY. [address] Abdominal dressing[address] Clears---> advanced to full liquids. PT recommends HH.
Met with patient who resides with his in a one story house with 3 JACINTA.
The patient has been independent in ADLs and ambulation.
DME - [facility]N - prior [facility]
SNF -none
PCP - Gerardo Cisneros
Pharmacy - [address], [place]
Offered VN due to SHERRY Drains and PT need, and patient says he would like [facility] at discharge, regardless if drain care is needed.
Referral to [facility]ia[facility].
Plan home with [facility].
[2023-11-20] MEDS: TYLENOL 1000 MG PO ×2 (17:05→23:09)
[2023-11-20] MEDS: LOVENOX 40 MG SC (17:05)
[2023-11-21] VITALS (13 sets, daily range): BP systolic 96–142; BP diastolic 57–88; PULSE 90; O2SAT 90; BMI 34.1
--- NOTE | 2023-11-21 00:22 | PTCARENOTE ---
Received pt at start of shift. aaox3, pleasant. no assessment changes. FEDERAL APPELLATE CLERK pump running, pt education given. Quick in place, draining yellow. SR on monitor. Remains on 2LNC. Dressings with moderate drainage. [address], draining blood.
Will monitor.
[2023-11-21] MEDS: TYLENOL 1000 MG PO ×3 (05:02→18:00)
[2023-11-21] MEDS: NSS 1000 IV (05:04)
[2023-11-21 05:28] LABS: Hematocrit 29.5 % (39.0-52.0); Hemoglobin 10.1 g/dL (13.0-18.0); Mean Corp Hgb Conc. 34.2 g/dL (33.0-37.0); Mean Corpuscular Hgb 35.1 pg (27.0-31.0); Mean Corpuscular Volume 102.4 fL (80.0-94.0); Mean Platelet Volume 9.8 fL (7.4-10.4); Platelet Count 186 10^3/uL (130-400); Red Blood Cell Count 2.88 10^6/uL (4.70-6.10); Red Cell Dist. Width 13.6 % (11.5-14.5); White Blood Cell Count 9.4 10^3/uL (4.8-10.8)
[2023-11-21 05:57] LABS: Blood Urea Nitrogen 16 mg/dl (9-20); Carbon Dioxide 21 mmol/L (22-30); Chloride 108 mmol/L (98-107); Estimated Creatinine Clearance 77 ml/min; Glucose 123 mg/dl (70-99); Potassium 4.2 mmol/L (3.5-5.1); Sodium 136 mmol/L (135-145); eGFR > 60.00
--- NOTE | 2023-11-21 07:06 | W.PN.HOSP.TC ---
Today's Communication/Plan
-
BP remains soft and would continue to hold lisinopril
Await return of bowel function and advancing diet as per CRS
She to have void trial prior to discharge per urology
Will continue to follow until BP normalizes to point and resume prior lisinopril may have to be held until further follow-up as outpatient
Assessment / Plan
Assessment / Plan
3-year-old with past medical history for prostate cancer, gout, acute diverticulitis, arthritis, hypertension, solitary kidney, BPH consulted for medical management status post open ventral hernia repair. Patient received 4 L of crystalloid and 250
cc albumin in the OR. Patient noted oliguric. Quick catheter placed in the OR with very minimal output. Bladder irrigated in the ER as well as PACU with no much urine output. Patient is very drowsy. Opens eyes when called name. Patient feels
like, he wants to void. Patient denied headache dizziness or syncopal episode. Patient denied chest pain or short of breath. Noted abdominal distended. Dressing intact. Noted bilateral SHERRY drainage.
# Status post ventral incisional hernia repair
-Bilateral SHERRY drainage
-Abdominal dressing intact
-Clear liquid diet
-Management surgery
# Oliguric /developed intraoperatively and postoperatively/ resolving
-Quick cath in place with little output in PACU/found to be in urethra and urology inserted a coud� catheter with good return
-Initial course of hematuria seems to be now resolving/retained catheter for another 24 hours and void trial recommended by urology prior to discharge
-Appreciate urology input
-
# Acute kidney injury/obstructive versus ATN from hypotension
-Creatinine 1.4>> 1.2>> 0.9 now at baseline
-Fluids continued
-Nephrology consulted/and has signed off
# Essential hypertension
-Hold lisinopril would continue to hold TRIPP inhibitor today
# Prostatic hypertrophy
-Flomax continued
-Void trial in next 24 hours
#. Gout. Hold allopurinol.
#Deep venous thrombosis prophylaxis with SCDs.
# CODE STATUS
-Full code
Anticipated Discharge: Within 24 hours
Subjective/Interval History
-
Date of Service: November 21, 2023
Doing well without complaint but no flatus or bowel movement as yet tolerated diet yesterday as ordered by his CRS
Objective Data
-
Labs:
Laboratory Results
11/21/23
05:01
WBC 9.4
Hgb 10.1 L
Hct 29.5 L
Plt Count 186
Sodium 136
Potassium 4.2
Chloride 108 H
Carbon Dioxide 21 L
BUN 16
Creatinine 0.9
Glucose 123 H
Calcium 8.0 L
Vital Signs:
Vital Signs
Temp Pulse Resp BP Pulse Ox
98.5 F 74 18 97/57 95
11/21/23 03:10 11/21/23 06:00 11/21/23 06:00 11/21/23 06:00 11/21/23 06:00
I&O
11/20/23 11/21/23 11/22/23
06:59 06:59 06:59
Intake Total 2493 / 2493 3506 / 3506
Output Total 2215 / 2215 1690 / 1690
Balance 278 / 278 1816 / 1816
Review of Systems
-
History Source: Patient
Physical Exam
-
General: Well Developed and Obese
HEENT: Normocephalic
Respiratory: Clear to Auscultation
Cardiac: Regular Rhythm
GI: Tender and Other (Bilateral SHERRY drains remain in place)
Genito-urinary: Quick
Data Reviewed
-
Total Time Spent with Patient (in minutes): 56
Labs: Labs Reviewed by me (Hemoglobin 10.1 and stable/blood sugar 123/)
[2023-11-21] MEDS: ZYLOPRIM 300 MG PO (08:18)
[2023-11-21] MEDS: FLOMAX 0.400000000000000022 MG PO (08:18)
[2023-11-21] MEDS: CLARITIN 10 MG PO (08:18)
[2023-11-21] MEDS: MIRALAX 17 GRAMS PO (08:18)
--- NOTE | 2023-11-21 09:43 | PTCARENOTE ---
Patient received from aluminum sheet cutter. Patient resting comfortably in bed. AAO, VSS. No events noted overnight. No complaints of pain as patient on a Dilaudid VELVET CUTTER, waiting new orders for parameters. IVF @ 100mL/hr. Surgical site intact, moderate
drainage. B/L SHERRY drains with continued serosanguineous output. Quick in place, yellow urine. Call hurtado in reach.
--- NOTE | 2023-11-21 11:47 | W.PN.GS2 ---
Today's Communication / Plan
-
Wean SOCIAL WORK THERAPIST
PT/OT
Await ROBF
Assessment / Plan
-
73 yo male who is POD #2 repair of incarcerated ventral hernia
AFVSS
Labs stable, CR improved today
Chronic kidney disease stage II with decreased urine output postoperatively: ATN suspected with urinary retention component. Improving with tai placement and IVF boluses
Appreciate IM, Nephrology/Urology input
Await bowel recovery
--Full liquids until passing flatus, then will ADAT to LRD
--Continue SHERRY's
--OOB/Ambulate as able
--Multimodal analgesics (avoid NSAIDs, ofirmev olman is ordered, SOCIAL WORK THERAPIST parameters widened today, hope to DC SOCIAL WORK THERAPIST tomorrow)
--Void trial tomorrow if DC possible, otherwise plan for void trial on the anticipated day of DC
--PT/OT
--DVT ppx lovenox/SCDs
Subjective Data
-
Date of Service: November 21, 2023
AFVSS, working with PT, pain controlled with SOCIAL WORK THERAPIST, no flatus, no n/v, donna fulls
Objective Data
-
Intake and Output
11/20/23 11/21/23 11/22/23
06:59 06:59 06:59
Intake Total 2493 / 2493 3506 / 3506
Output Total 2215 / 2215 1690 / 1690 40 / 40
Balance 278 / 278 1816 / 1816 -40 / -40
Intake:
Oral fluids 140 / 140 1200 / 1200
IV fluids (Total) 2153 / 2153 2300 / 2300
D5.45ns with 20 KCL 150 / 150
SOCIAL WORK THERAPIST Dilaudid 3 / 3
normosol 400 / 400
nss 400 / 400
ofirmev 100 / 100
IV piggybacks 200 / 200 6 / 6
Output:
Drain Output (Total) 315 / 315 240 / 240 40 / 40
Left Middle Abdomen 210 / 210 115 / 115 20 / 20
Right Middle Abdomen 105 / 105 125 / 125 20 / 20
Urine, Tai 725 / 725 1450 / 1450
Urine, Voided 1175 / 1175
Vital Signs
Temp Pulse Resp BP Pulse Ox
97.9 F 74 14 97/57 92
11/21/23 07:10 11/21/23 06:00 11/21/23 08:00 11/21/23 06:00 11/21/23 09:12
Lab Results
11/21/23 05:01
11/21/23 05:01
Calcium 8.0 mg/dl (8.4-10.2) L 11/21/23 05:01
Physical Exam
-
Gen: NAD
Abd: soft, approp ttp, aquacel with strikethrough, drains ss
[2023-11-21] MEDS: ZOFRAN 4 MG IV (11:51)
[2023-11-21] MEDS: REFRESH EYE DROPS (PF) 1 DROPS OPHTH (15:26)
--- NOTE | 2023-11-21 15:53 | VNURNOTE ---
Home Health Liaison spoke with patient's Harini at 1530 to discuss [facility] nurse/therapy, visits, schedule and homebound status. Pat is agreeable and understands that visits at home will be 2-3 x per week to assess and teach medical management and SHERRY
drain care. Pat is able and willing to assist with drain care. Patient was asleep at time of visit.
Pat is aware that [facility] will contact them for start of care in 1-2 days after discharge from .
[facility] referral completed in [facility].
[2023-11-21] MEDS: NSS IV ×2 (17:01→20:42)
[2023-11-21] MEDS: LOVENOX 40 MG SC (18:00)
[2023-11-22] VITALS (9 sets, daily range): BP systolic 110–141; BP diastolic 54–92; PULSE 86; O2SAT 94; BMI 33.7
[2023-11-22] MEDS: TYLENOL 1000 MG PO ×4 (00:06→23:38)
[2023-11-22] MEDS: ULTRAM 50 MG PO ×4 (04:09→23:38)
--- NOTE | 2023-11-22 04:44 | PTCARENOTE ---
Abd dressings with old drainage. Pt reports gas but no BM. JPs intact. Quick draining clear yellow urine. Pt requesting tramadol for 8/10 pain instead of oxycodone for pain. Pt reports oxycodone makes him sick. Call hurtado within reach. Pt calls
appropriately.
[2023-11-22 04:58] LABS: Hematocrit 29.6 % (39.0-52.0); Hemoglobin 10.2 g/dL (13.0-18.0); Mean Corp Hgb Conc. 34.5 g/dL (33.0-37.0); Mean Corpuscular Hgb 34.7 pg (27.0-31.0); Mean Corpuscular Volume 100.7 fL (80.0-94.0); Mean Platelet Volume 9.6 fL (7.4-10.4); Platelet Count 197 10^3/uL (130-400); Red Blood Cell Count 2.94 10^6/uL (4.70-6.10); Red Cell Dist. Width 13.2 % (11.5-14.5); White Blood Cell Count 8.6 10^3/uL (4.8-10.8)
[2023-11-22 05:17] LABS: Blood Urea Nitrogen 13 mg/dl (9-20); Calcium 8.6 mg/dl (8.4-10.2); Carbon Dioxide 22 mmol/L (22-30); Chloride 107 mmol/L (98-107); Estimated Creatinine Clearance 86 ml/min; Glucose 122 mg/dl (70-99); Potassium 3.9 mmol/L (3.5-5.1); Sodium 135 mmol/L (135-145); eGFR > 60.00
[2023-11-22] MEDS: NSS IV (05:28)
[2023-11-22] MEDS: TYLENOL PO (06:18)
--- NOTE | 2023-11-22 07:07 | W.PN.HOSP.TC ---
Today's Communication/Plan
-
Defer advancing diet to general surgery
Should be able to resume lisinopril today and at discharge
Void trial if general surgery and urology deem plausible prior to discharge
There have been no other outstanding acute medical issues will sign off
Assessment / Plan
Assessment / Plan
3-year-old with past medical history for prostate cancer, gout, acute diverticulitis, arthritis, hypertension, solitary kidney, BPH consulted for medical management status post open ventral hernia repair. Patient received 4 L of crystalloid and 250
cc albumin in the OR. Patient noted oliguric. Quick catheter placed in the OR with very minimal output. Bladder irrigated in the ER as well as PACU with no much urine output. Patient is very drowsy. Opens eyes when called name. Patient feels
like, he wants to void. Patient denied headache dizziness or syncopal episode. Patient denied chest pain or short of breath. Noted abdominal distended. Dressing intact. Noted bilateral SHERRY drainage.
# Status post ventral incisional hernia repair
-Bilateral SHERRY drainage
-Abdominal dressing intact
-Clear liquid diet
-Management surgery
# Oliguric /developed intraoperatively and postoperatively/ resolving
-Quick cath in place with little output in PACU/found to be in urethra and urology inserted a coud� catheter with good return
-Initial course of hematuria seems to be now resolving/retained catheter for another 24 hours and void trial recommended by urology prior to discharge
-Appreciate urology input
-
# Acute kidney injury/obstructive versus ATN from hypotension
-Creatinine 1.4>> 1.2>> 0.8 now at baseline
-Fluids continued
-Nephrology consulted/and has signed off
# Essential hypertension
-Can resume lisinopril today and at discharge
# Prostatic hypertrophy
-Flomax continued
-Void trial in next 24 hours
#. Gout. Hold allopurinol.
#Deep venous thrombosis prophylaxis with SCDs.
# CODE STATUS
-Full code
Anticipated Discharge: Within 24 hours
Subjective/Interval History
-
Date of Service: November 22, 2023
Moving bowels tolerating full liquid diet pain alleviated with Ultram intolerant to oxycodone in past.
Objective Data
-
Labs:
Laboratory Results
11/22/23
04:36
WBC 8.6
Hgb 10.2 L
Hct 29.6 L
Plt Count 197
Sodium 135
Potassium 3.9
Chloride 107
Carbon Dioxide 22
BUN 13
Creatinine 0.8
Glucose 122 H
Calcium 8.6
Vital Signs:
Vital Signs
Temp Pulse Resp BP Pulse Ox
98.9 F 66 21 124/71 94
11/22/23 03:10 11/22/23 06:00 11/22/23 06:00 11/22/23 06:00 11/22/23 06:00
I&O
11/21/23 11/22/23 11/23/23
06:59 06:59 06:59
Intake Total 3506 / 3506 600 / 600
Output Total 1690 / 1690 1580 / 1580
Balance 1816 / 1816 -980 / -980
Review of Systems
-
All other systems: Not reviewed unless documented
Physical Exam
-
General: Well Developed
HEENT: Normocephalic
Respiratory: Clear to Auscultation
Cardiac: Regular Rhythm
GI: Tender (An incision and SHERRY drain)
Genito-urinary: Quick (Drainage clear)
Psych: Calm
Data Reviewed
-
Total Time Spent with Patient (in minutes): 45
Labs: Labs Reviewed by me (Globin 10.2 white count 8.6 stable/creatinine stable)
[2023-11-22] MEDS: ZYLOPRIM 300 MG PO (09:07)
[2023-11-22] MEDS: MIRALAX 17 GRAMS PO (09:08)
[2023-11-22] MEDS: ZESTRIL 20 MG PO (09:08)
[2023-11-22] MEDS: CLARITIN 10 MG PO (09:08)
[2023-11-22] MEDS: FLOMAX 0.400000000000000022 MG PO (09:09)
--- NOTE | 2023-11-22 10:09 | W.PN.URO.CBU ---
Today's Communication / Plan
-
Voiding trial in electrical engineering teacher tomorrow
Assessment / Plan
-
Quick catheter trauma
Gross hematuria
Urine retention
---
Procedure 11/19/23:
Sterile field established at the bedside
20 Fr Coude catheter passed with some resistance in the mid/proximal urethra after the intra-urehtral administration of 10 cc lubricant jelly (which also met some resistance)
500+ ml of clear urine recovered immediately
Quick balloon inflated with 10 ml sterile water
Diagnosis
-
Date of Service: November 22, 2023
-
Patient Diagnosis:
Gross hematuria
Urine retention
Quick catheter trauma: during open incisional hernia repair
---
History of prostate cancer s/p radical perineal prostatectomy 04/28
Subjective
-
No catheter bother
Objective
-
Vital Signs
Temp Pulse Resp BP Pulse Ox
98.2 F 66 21 124/71 94
11/22/23 07:55 11/22/23 06:00 11/22/23 06:00 11/22/23 06:00 11/22/23 06:00
Intake and Output
11/21/23 11/22/23 11/23/23
06:59 06:59 06:59
Intake Total 3506 / 3506 600 / 600
Output Total 1690 / 1690 1580 / 1580
Balance 1816 / 1816 -980 / -980
Intake:
Oral fluids 1200 / 1200 600 / 600
IV fluids (Total) 2300 / 2300
IV piggybacks
Output:
Drain Output (Total) 240 / 240 130 / 130
Left Middle Abdomen 115 / 115 70 / 70
Right Middle Abdomen 125 / 125 60 / 60
Urine, Quick 1450 / 1450 1450 / 1450
Laboratory Results
11/22/23 04:36
11/22/23 04:36
Review of Systems
-
Constitutional: No Symptoms
Respiratory: No Symptoms
Cardiac: No Symptoms
Abdomen/GI: Abdominal Pain
Physical Exam
-
General - well nourished, no acute distress
Abdomen - soft.
Genitalia - normal with Quick draining clear urine
Counseling
-
Quick out at 0600 11/23/23 for voiding trial before discharge home
Discussed with Dr. Luo
--- NOTE | 2023-11-22 15:54 | W.PN.GS2 ---
Addendum entered and electronically signed by Mo Hernandez MD 11/22/23 15:59:
Transfer to floors
Original Note:
Today's Communication / Plan
-
-- Regular diet
-- Void trial tomorrow
-- Possible DC tomorrow, CM consult
Assessment / Plan
-
73 yo male who is POD #3 repair of incarcerated ventral hernia
BP and HR improved
Labs stable, Cr improved
Chronic kidney disease stage II with decreased urine output postoperatively: ATN suspected with urinary retention component. Improving with Quick placement and IVF boluses
Appreciate IM, Nephrology/Urology input
ROBF
--Regular diet
--Continue SHERRY's
--OOB/Ambulate as able, PT/OT
--Multimodal analgesics (avoid NSAIDs, Tylenol and Tramadol)
--Void trial tomorrow, Urology following, appreciate
--DVT ppx lovenox/SCDs
Subjective Data
-
Date of Service: November 22, 2023
Feels improved. No major complaints. Pain controlled, improved on tramadol. No nausea or vomiting. Reports passing flatus and BMs. No fevers. Ambulating. Quick in place.
Objective Data
-
Intake and Output
11/21/23 11/22/23 11/23/23
06:59 06:59 06:59
Intake Total 3506 / 3506 600 / 600
Output Total 1690 / 1690 1580 / 1580
Balance 1816 / 1816 -980 / -980
Intake:
Oral fluids 1200 / 1200 600 / 600
IV fluids (Total) 2300 / 2300
IV piggybacks 6 / 6
Output:
Drain Output (Total) 240 / 240 130 / 130
Left Middle Abdomen 115 / 115 70 / 70
Right Middle Abdomen 125 / 125 60 / 60
Urine, Quick 1450 / 1450 1450 / 1450
Vital Signs
Temp Pulse Resp BP Pulse Ox
98.7 F 66 21 124/71 94
11/22/23 15:15 11/22/23 06:00 11/22/23 06:00 11/22/23 06:00 11/22/23 06:00
Lab Results
11/22/23 04:36
11/22/23 04:36
Calcium 8.6 mg/dl (8.4-10.2) 11/22/23 04:36
Physical Exam
-
Gen: NAD
Abd: soft, minimal tenderness, ND/obese, non-peritoneal, midline with bloody staining, JPs serosang
--- NOTE | 2023-11-22 16:13 | CM ---
Patient who is s/p repair of incarcerated ventral hernia, with Dx oliguria, hematuria, ROSSY. [address] Quick - plan void trial tomorrow. PT recommends HH. OT recommends SNF vs home w/assist.
CM continuing to follow.
Plan home with [facility].
[2023-11-22] MEDS: LOVENOX 40 MG SC (17:32)
[2023-11-23 03:50] VITALS: BMI 33.5
[2023-11-23] MEDS: ULTRAM 50 MG PO ×2 (06:30→12:25)
[2023-11-23] MEDS: TYLENOL 1000 MG PO ×2 (06:31→12:26)
--- NOTE | 2023-11-23 06:38 | PTCARENOTE ---
Pt ambulated to BR; gas but no BM. Quick removed this morning at 0630. Pain managed with tylenol and tramadol overnight. pt reports sleeping well. call [facility]ado within reach. Pt hoping to go home today.
[2023-11-23 07:34] VITALS: BP 146/66
[2023-11-23 07:43] VITALS: BP 146/66
--- NOTE | 2023-11-23 08:37 | W.PN.GS2 ---
Today's Communication / Plan
-
--DC today with [facility] pending Urology/void plan
Assessment / Plan
-
73 yo male who is POD #4 repair of incarcerated ventral hernia
BP and HR improved
Labs stable, Cr improved
Chronic kidney disease stage II with decreased urine output postoperatively: ATN suspected with urinary retention component. Improving with Quick placement and IVF boluses
Appreciate IM, Nephrology/Urology input
ROBF
--Regular diet
--Continue SHERRY's
--OOB/Ambulate as able, PT/OT
--Multimodal analgesics (avoid NSAIDs, Tylenol and Tramadol)
--Quick removed void trial, Urology following, appreciate
--DVT ppx lovenox/SCDs
--DC today with [facility] pending Urology/void plan
Subjective Data
-
Date of Service: November 23, 2023
No complaints. Pain well-controlled. No nausea or vomiting. Reports passing flatus and stools. Afebrile. Quick removed and awaiting void.
Objective Data
-
Intake and Output
11/22/23 11/23/23 11/24/23
06:59 06:59 06:59
Intake Total 600 / 600 960 / 960
Output Total 1580 / 1580 850 / 850
Balance -980 / -980 110 / 110
Intake:
Oral fluids 600 / 600 960 / 960
Output:
Drain Output (Total) 130 / 130 100 / 100
Left Middle Abdomen 70 / 70 40 / 40
Right Middle Abdomen 60 / 60 60 / 60
Urine, Quick 1450 / 1450 750 / 750
Vital Signs
Temp Pulse Resp BP Pulse Ox
98.7 F 76 28 146/66 95
11/23/23 07:43 11/23/23 07:43 11/23/23 07:43 11/23/23 07:43 11/23/23 07:46
Lab Results
11/22/23 04:36
11/22/23 04:36
Calcium 8.6 mg/dl (8.4-10.2) 11/22/23 04:36
Physical Exam
-
Gen: NAD
Abd: soft, mild tenderness, ND, non-peritoneal, JPs serosang, clot stripped, midline dressing removed old clot wiped clean no active bleeding, changed to clean gauze and tape
[2023-11-23] MEDS: FLOMAX 0.400000000000000022 MG PO (08:38)
[2023-11-23] MEDS: CLARITIN 10 MG PO (08:38)
[2023-11-23] MEDS: ZYLOPRIM 300 MG PO (08:38)
[2023-11-23] MEDS: ZESTRIL 20 MG PO (08:38)
[2023-11-23] MEDS: MIRALAX PO (08:39)
--- NOTE | 2023-11-23 08:39 | W.DS.TRANS ---
Addendum entered and electronically signed by VINI Ervin 11/29/23 14:26:
#[id number]
Original Note:
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
-
Discharge Instructions:
Sleep Apnea Risk Low
Discharge Diagnosis/Procedures Ventral incisional hernia, urinary retention
Diet Low Residue
Activity No strenuous activity
Bathing Restrictions OK to Shower
Wound Care Cover wound with plain dry gauze as needed for
drainage, change daily. If no drainage, no need
to cover. Record SHERRY outputs daily. Call when
outputs < 20 mL/day for 2 consecutive days.
Instructions: Abdominal Hernia Repair (DC)
Stand-Alone Forms:
Changes to Home Medications: Yes
Discharge Medications:
DC Medications w/original date entered in [employer]
glucosamine sulfate dipotassium Cl 500 mg-chondroitin 400 mg capsule (Glucosamine Sulfate 2 KCL-Chondroitin) 1 cap PO BID Supplement 07/23/12
omega-3 fatty acids-fish oil 300 mg-1,000 mg capsule 1,000 mg PO BID Supplement 07/23/12
allopurinol 300 mg tablet 300 mg PO DAILY Gout 11/17/21
cyanocobalamin (vitamin B-12) 1,000 mcg tablet 5,000 mcg PO DAILY Supplement 11/17/21
lisinopril 20 mg tablet 20 mg PO DAILY Blood pressure 11/17/21
loratadine 10 mg tablet 10 mg PO DAILY Allergies 11/17/21
tamsulosin 0.4 mg capsule 0.4 mg PO DAILY Urinary issue 06/13/22
acetaminophen 650 mg tablet,extended release 1,300 mg PO Q12H Pain 04/24/23
owhfbzuiozrh-lvcoklmx-kuxhpa tablet 1 tab PO DAILY Supplement 04/24/23
tadalafil 5 mg tablet 5 mg PO DAILY Phosphodiesterase-5 Enzyme Inhibitor 11/13/23
tramadol 50 mg tablet 50 mg PO Q6HPRN PRN severe pain/breakthrough pain #14 tabs 11/23/23
Home Medication Changes
Pending Results: No
--- NOTE | 2023-11-23 11:11 | CM ---
Patient who is s/p repair of incarcerated ventral hernia, with Dx oliguria, hematuria, ROSSY. [address] Tai - void trial today. PT recommends HH. OT recommends SNF vs home w/assist.
Met with patient who was preparing for d/c. The patient says he feels ready to go home today. IMM completed. The patient still had tai cath in place and is hoping to be able to void so catheter can be removed. Patient says he has had a tai
at home before and is not concerned if tai remains. Patient is aware that [facility] is in place. His daughter Lenore is a nurse and will be taking him home today. He is eager to go home to see his dog/Labrador who misses him.
Plan home today with [facility].
--- NOTE | 2023-11-23 11:13 | VNURNOTE ---
Home Health Liaison met with patient at 1030 to discuss [facility] nurse/therapy, visits, schedule and homebound status. Patient is agreeable and understands that visits at home will be 2-3 x per week to assess and teach medical management and SHERRY drain
care.
[facility] brochure provided with contact information. Patient is aware that [facility] will contact him for start of care in 1-2 days after discharge from .
[2023-11-23 12:14] VITALS: BP 140/75
== END 2023-11-23 16:19 | disposition home health service (06) | DRG 353 ==
LOC: IMU 06:56
PROVIDERS: ADMITTING PHYSICIAN Surgery; CONSULT PHYSICIAN Internal Medicine; CONSULT PHYSICIAN Specialist; FAMILY PHYSICIAN Family Medicine
PROC: 0KNK0ZZ Release Right Abdomen Muscle, Open Approach (ICD-10-PCS; 2023-11-19)
PROC: 0WUF0JZ Supplement Abdominal Wall with Synthetic Substitute, Open Approach (ICD-10-PCS; 2023-11-19)
PROC: 0KNL0ZZ Release Left Abdomen Muscle, Open Approach (ICD-10-PCS; 2023-11-19)
PROC: 0T9B70Z Drainage of Bladder with Drainage Device, Via Natural or Artificial Opening (ICD-10-PCS; 2023-11-19)
DX: K43.0 Incisional hernia with obstruction, without gangrene (principal); N17.0 Acute kidney failure with tubular necrosis; E87.20 Acidosis, unspecified; N99.821 Postprocedural hemorrhage of a genitourinary system organ or structure following other procedure; K66.0 Peritoneal adhesions (postprocedural) (postinfection); I12.9 Hypertensive chronic kidney disease with stage 1 through stage 4 chronic kidney disease, or unspecified chronic kidney disease; N18.2 Chronic kidney disease, stage 2 (mild); M10.9 Gout, unspecified; N40.1 Benign prostatic hyperplasia with lower urinary tract symptoms; N28.89 Other specified disorders of kidney and ureter; N99.0 Postprocedural (acute) (chronic) kidney failure; R33.8 Other retention of urine; M54.30 Sciatica, unspecified side; K59.00 Constipation, unspecified; J30.1 Allergic rhinitis due to pollen; Y83.4 Other reconstructive surgery as the cause of abnormal reaction of the patient, or of later complication, without mention of misadventure at the time of the procedure; Y73.2 Prosthetic and other implants, materials and accessory gastroenterology and urology devices associated with adverse incidents; Y92.239 Unspecified place in hospital as the place of occurrence of the external cause; I95.89 Other hypotension; M19.90 Unspecified osteoarthritis, unspecified site; Z96.653 Presence of artificial knee joint, bilateral; Z96.643 Presence of artificial hip joint, bilateral; Z88.6 Allergy status to analgesic agent; Z85.46 Personal history of malignant neoplasm of prostate; Z85.528 Personal history of other malignant neoplasm of kidney; Z87.19 Personal history of other diseases of the digestive system; Z90.5 Acquired absence of kidney; Z87.442 Personal history of urinary calculi
CPT/HCPCS: 36415; 80048; 82962; 85027; 93005; 97163; 97167; 97530; C1781; P9045

== ENCOUNTER → 2024-03-28 14:04 | Outpatient (REF) | payer OTHER, SELFPAY | LOC: PAVMRI 14:04 | PROVIDERS: ATTENDING PHYSICIAN Family Medicine | DX: M54.42 Lumbago with sciatica, left side (principal); M51.26 Other intervertebral disc displacement, lumbar region | CPT/HCPCS: 72158; A9575 ==

== ENCOUNTER → 2024-05-04 06:48 | Outpatient (REF) | payer OTHER, SELFPAY | LOC: MRI 06:48 | PROVIDERS: ATTENDING PHYSICIAN Orthopaedic Surgery Orthopaedic Surgery of the Spine; FAMILY PHYSICIAN Family Medicine | DX: M48.04 Spinal stenosis, thoracic region (principal) | CPT/HCPCS: 72141; 72146 ==

== ENCOUNTER → 2025-04-25 07:34 | Outpatient (REF) | payer OTHER, SELFPAY | LOC: PAVMRI 07:34 | PROVIDERS: ATTENDING PHYSICIAN Specialist; FAMILY PHYSICIAN Family Medicine | DX: M54.16 Radiculopathy, lumbar region (principal) | CPT/HCPCS: 72148 ==